=== PATIENT | female | born 1965 | race African-American/Black ===

== ENCOUNTER 2020-10-10 20:40 | Emergency (ER) | payer OTHER ==
[~2020-10-10] VITALS: Ht 170.2 cm; Wt 70.0 kg
[2020-10-10] MEDS ORDERED: ASPIRIN 81MG TABLET PO ONE (22:00)
[2020-10-10] MEDS ORDERED: SODIUM CHLORIDE 0.9% 1,000 ML IV ONE (22:00)
[2020-10-10 22:57] LABS: BASOPHILS % 0.3 % (0.0-2.0); EOSINOPHILS % 0.6 % (0.0-5.0); HEMATOCRIT. 36.5 % (36.0-48.0); HEMOGLOBIN. 12.5 g/dL (12.0-16.0); LYMPHOCYTES % 11.3 % (20.0-50.0); MEAN CORPUSCULAR HEMOGLOBIN 28.9 pg (28.0-32.0); MEAN CORPUSCULAR VOLUME 84.8 fL (81.0-99.0); MONOCYTES % 7.7 % (2.0-8.0); NEUTROPHILS % 80.1 % (40.0-76.0); PLATELET 174 x1000/uL (130-400); RED CELL DISTRIBUTION WIDTH 13.1 % (11.6-14.6)
[2020-10-10 23:03] LABS: CHLORIDE 101 mEq/L (98-107)
[2020-10-10 23:09] LABS: D-DIMER < 0.19 mg/L FEU (<0.50); INR 1.1; PARTIAL THROMBOPLASTIN TIME 25.9 sec (23.4-31.0); PROTHROMBIN TIME 11.8 sec (9.6-11.0)
[2020-10-10 23:10] LABS: BETA HYDROXYBUTYRATE 0.6 mMol/L (0.0-0.3)
[2020-10-10] MEDS ORDERED: POTASSIUM CHLORIDE 20MEQ TABLET SR PO ONE (23:30)
[2020-10-11] MEDS ORDERED: ASPIRIN 81MG TABLET PO NR (03:15)
[2020-10-11] MEDS: NITROGLYCERIN 0.4MG TABLET SL SL PRN ×2 (05:37→06:45)
[2020-10-11 10:36] VITALS: BP 128/80
== END 2020-10-11 10:58 | disposition short-term general hospital (02) ==
LOC: ER 20:40 → CANBEDREQ 10-11 16:38
DX: R07.89 Other chest pain (principal); Z90.49 Acquired absence of other specified parts of digestive tract; Z20.822 Contact with and (suspected) exposure to COVID-19
CPT/HCPCS: 36415; 71045; 80053; 82010; 82962; 83880; 84484; 85025; 85379; 85610; 85730; 87426; 93005; 96360; 99285; J7030; Z7610